=== PATIENT | female | born 1990 | race Caucasian/White ===

== ENCOUNTER 2021-12-29 19:28 | Inpatient (IN) | payer BC ==
[~2021-12-29 19:28] MED LIST: Bupivacaine 0.25% HCL 30 ML VIAL ONE
[2021-12-29] MEDS ORDERED: Ibuprofen 800 MG TAB PO PRN (20:48)
[2021-12-29] MEDS ORDERED: Misoprostol 200 MCG TAB PR PRN (20:48)
[2021-12-29] MEDS ORDERED: Promethazine HCl 25 MG/ML VIAL IM PRN (20:48)
[2021-12-29] MEDS ORDERED: HYDROcodone/Acetaminophen 5/325 mg Tablet PO PRN ×2 (20:48)
[2021-12-29] MEDS ORDERED: Ondansetron PF 4 MG/2 ML Vial IVP PRN (20:48)
[2021-12-29] MEDS ORDERED: Lidocaine 1% (PF) 30 ML VIAL SC PRN (20:48)
[2021-12-29] MEDS ORDERED: Diphenoxylate HCl/Atropine Tablet PO PRN (20:48)
[2021-12-29] MEDS ORDERED: Methylergonovine 0.2 MG/ML VIAL IM PRN (20:48)
[2021-12-29] MEDS ORDERED: Acetaminophen 500 MG TAB PO PRN (20:48)
[2021-12-29] MEDS ORDERED: Butorphanol Tartrate 1 MG/ML VIAL SLOW IVP PRN (20:48)
[2021-12-29] MEDS ORDERED: hydrALAZINE 20 MG/ML VIAL SLOW IVP PRN (20:48)
[2021-12-29] MEDS ORDERED: Carboprost 250 MCG/ML AMP IM PRN (20:48)
[2021-12-29] MEDS ORDERED: NS w/ Oxytocin 30 units 500 ML IV SCH ×2 (21:00)
[2021-12-29 21:10] LABS: Hemoglobin 13.3 g/dL (12.0-15.5); Mean Corpuscular HGB CONC 34.5 g/dL (32.0-36.0); Mean Corpuscular Hemoglobin 28.7 pg (27.0-33.0); Mean Corpuscular Volume 83.2 fl (81.6-98.3); Mean Platelet Volume 12.3 fl (7.4-10.4); Platelet Count 176 10x3/uL (150-450); RBC Distribution Width 17.4 % (11.5-14.5); Red Blood Cell (RBC) Count 4.64 10x6/uL (3.90-5.03); White Blood Cell (WBC) Count 12.7 10x3/uL (3.5-10.5)
[2021-12-29 21:33] LABS: Syphilis Antibody Nonreactive (Nonreactive); Syphilis Antibody Index 0.05 S/CO (<1.00 Non-Reactive)
[2021-12-29 22:14] VITALS: BMI 26.2
[2021-12-29] MEDS ORDERED: diphenhydrAMINE 50 MG/ML VIAL IVP PRN (22:51)
[2021-12-29 23:18] LABS: HBSAg Index 0.33 S/CO (0-0.99); Hep B Surf Ag Non-Reactive S/CO (NonReactive)
[2021-12-30] MEDS ORDERED: Fentanyl 2 mcg/Bup 0.1% Cadd 100 ML ONE (03:15)
[2021-12-30] MEDS ORDERED: Moisturizing Cream (Eucerin) 113 GM JAR TOP PRN (04:00)
[2021-12-30] MEDS ORDERED: Promethazine HCl 25 MG/ML VIAL IM PRN (04:00)
[2021-12-30] MEDS ORDERED: Communication Order-Pharmacy FS SCH (04:00)
[2021-12-30] MEDS ORDERED: Acetaminophen 325 MG TAB PO PRN (04:00)
[2021-12-30] MEDS ORDERED: ePHEDrine Sulfate 50 MG/10 ML VIAL SLOW IVP PRN (04:00)
[2021-12-30] MEDS ORDERED: Naloxone HCl 0.4 mg/ml Vial IVP PRN ×2 (04:00)
[2021-12-30] MEDS ORDERED: Lactated Ringer's 500 ML IV PRN (04:00)
[2021-12-30] MEDS ORDERED: diphenhydrAMINE 50 MG/ML VIAL IVP PRN (04:00)
[2021-12-30] MEDS: Lactated Ringer's 1,000 ML IV SCH ×3 (08:25→18:10)
[2021-12-30] MEDS: Ondansetron PF 4 MG/2 ML Vial IVP PRN ×3 (08:38→21:52)
[2021-12-30 11:13] LABS: SARS-CoV-2 NAA Rapid Test Not Detected (NotDetected)
[2021-12-30] MEDS: Fentanyl 2 mcg/Bupivacaine 0.1% Cassette 100 ML EPIDURAL SCH ×2 (11:19→17:30)
[2021-12-30] MEDS ORDERED: Ondansetron PF 4 MG/2 ML Vial ONE ×2 (16:09→21:55)
[2021-12-30] MEDS ORDERED: Calcium Carbonate 500 MG ChewTAB PO SCH (16:30)
[2021-12-30] MEDS ORDERED: Labetalol HCl 100 MG/20 ML VIAL SLOW IVP PRN ×2 (23:55)
[2021-12-30] MEDS ORDERED: hydrALAZINE 20 MG/ML VIAL SLOW IVP PRN ×2 (23:55)
[2021-12-31] MEDS ORDERED: Lidocaine 1% (PF) 30 ML VIAL ONE (00:30)
[2021-12-31] MEDS ORDERED: Misoprostol 200 MCG TAB VAG PRN (01:21)
[2021-12-31] MEDS ORDERED: NS w/ Oxytocin 30 units 500 ML IV SCH (01:21)
[2021-12-31] MEDS ORDERED: Lanolin Ointment 7 GM TUBE TOP PRN (01:21)
[2021-12-31] MEDS ORDERED: Methylergonovine 0.2 MG/ML VIAL IM PRN (01:21)
[2021-12-31] MEDS ORDERED: Milk Of Magnesia 30 ML UDCUP PO PRN (01:21)
[2021-12-31] MEDS ORDERED: Ondansetron PF 4 MG/2 ML Vial IVP PRN (01:21)
[2021-12-31] MEDS ORDERED: hydrALAZINE 20 MG/ML VIAL SLOW IVP PRN (01:21)
[2021-12-31] MEDS ORDERED: Benzocaine-Menthol 82.5 ML CAN TOP PRN (01:21)
[2021-12-31] MEDS ORDERED: Bisacodyl 10 MG SUPP PR PRN (01:21)
[2021-12-31] MEDS ORDERED: HYDROcodone/Acetaminophen 5/325 mg Tablet PO PRN (01:21)
[2021-12-31] MEDS: Ibuprofen 800 MG TAB PO SCH ×3 (01:55→17:28)
[2021-12-31] MEDS: HYDROcodone/Acetaminophen 5/325 mg Tablet PO PRN ×3 (02:21→18:21)
[2021-12-31] MEDS ORDERED: Ibuprofen 800 MG TAB PO SCH (06:00)
[2021-12-31] MEDS: Ferrous Sulfate 325 MG TAB PO SCH ×2 (09:08→15:51)
[2021-12-31] MEDS: Prenatal Vitamin 1 TAB PO SCH (09:09)
[2021-12-31] MEDS: Docusate 100 MG CAP PO SCH ×2 (09:09→20:15)
[2022-01-01] MEDS: Ibuprofen 800 MG TAB PO SCH ×2 (00:19→07:50)
[2022-01-01] MEDS: Docusate 100 MG CAP PO SCH (07:50)
[2022-01-01] MEDS: Prenatal Vitamin 1 TAB PO SCH (07:50)
[2022-01-01] MEDS: HYDROcodone/Acetaminophen 5/325 mg Tablet PO PRN (07:50)
[2022-01-01 08:25] VITALS: BP 124/76; TEMP 97.9
[2022-01-01] MEDS: Ferrous Sulfate 325 MG TAB PO SCH (08:26)
== END 2022-01-01 13:50 | disposition home or self-care (01) | DRG 807 ==
LOC: CSHLD/OP 19:28 → CSHLD 21:34 → CSHPP 12-31 03:58
PROVIDERS: ADMIT Obstetrics & Gynecology; ATTEND Obstetrics & Gynecology
PROC: 10907ZC Drainage of Amniotic Fluid, Therapeutic from Products of Conception, Via Natural or Artificial Opening (ICD-10-PCS; 2021-12-30)
PROC: 10H07YZ Insertion of Other Device into Products of Conception, Via Natural or Artificial Opening (ICD-10-PCS; 2021-12-30)
PROC: 10E0XZZ Delivery of Products of Conception, External Approach (ICD-10-PCS; principal; 2021-12-31)
PROC: 0HQ9XZZ Repair Perineum Skin, External Approach (ICD-10-PCS; 2021-12-31)
DX: O99.344 Other mental disorders complicating childbirth (principal); Z37.0 Single live birth; Z3A.40 40 weeks gestation of pregnancy; F41.9 Anxiety disorder, unspecified; F32.A Depression, unspecified; Z20.822 Contact with and (suspected) exposure to COVID-19; E78.00 Pure hypercholesterolemia, unspecified; O99.284 Endocrine, nutritional and metabolic diseases complicating childbirth; H53.50 Unspecified color vision deficiencies; O99.892 Other specified diseases and conditions complicating childbirth; O26.893 Other specified pregnancy related conditions, third trimester; Z67.11 Type A blood, Rh negative; O76 Abnormality in fetal heart rate and rhythm complicating labor and delivery; O70.0 First degree perineal laceration during delivery; O32.8XX0 Maternal care for other malpresentation of fetus, not applicable or unspecified; O69.81X0 Labor and delivery complicated by cord around neck, without compression, not applicable or unspecified
CPT/HCPCS: 36415; 51702; 85027; 86780; 86850; 86900; 86901; 87340; 99285; J0595; J1200; J2405; J2590; J7120; S0020; U0002